=== PATIENT | female | born 1980 ===

== ENCOUNTER 2017-06-29 16:22 | Emergency (ER) | payer SELFPAY ==
[2017-06-29 16:45] VITALS: BP 106/64; PULSE 72; RESP 16; TEMP 98.4; O2SAT 100
[2017-06-29] MEDS ORDERED: Piperacillin/Tazobact 3.375 GM in Sodium Chloride 0.9% 100 ML IVPB STA (17:34)
[2017-06-29] MEDS ORDERED: Tdap Vaccine 0.5 ml Vial (10-64 yrs) IM ONE ×2 (17:36→18:10)
[2017-06-29] MEDS ORDERED: Piperacillin/Tazobact 3.375 gm Inj IVPB ONE (18:04)
--- NOTE | 2017-06-29 18:36 | ED PDOC ---
HPI: Skin/Bite Injury Time Seen by Provider: 06/29/17 17:19 Chief Complaint (Nursing): Abnormal Skin Integrity Chief Complaint (Provider): Rash History Per: Patient History/Exam Limitations: no limitations Onset/Duration Of Symptoms: Days (x1) Current Symptoms Are (Timing): Still Present Location Of Injury: Left: Forearm Quality Of Symptoms: Itching, Swollen, Other (redness) Additional Complaint(s): Juliane Joshua is a 36 year old female, with no significant past medical history, who presents to the emergency department complaining of an itchy rash to the left forearm onset since yesterday. Patient reports she developed the rash yesterday, but today she noticed the redness became worst along with swelling. She denies any fever, chills, trauma, discharge, numbness or tingling. No further medical complaints. PMD: Emmanuel Mayfield Past Medical History Reviewed: Historical Data, Nursing Documentation, Vital Signs Vital Signs: Last Vital Signs Temp 98.4 F 06/29/17 16:43 Pulse 72 06/29/17 16:43 Resp 16 06/29/17 16:43 BP 106/64 06/29/17 16:43 Pulse Ox 100 06/29/17 18:44 - Medical History PMH: No Chronic Diseases - Surgical History Surgical History: No Surg Hx - Family History Family History: States: Unknown Family Hx - Home Medications Home Medications: Ambulatory Orders Medication Instructions Recorded Famotidine [Pepcid] 20 mg PO DAILY PRN #6 tab 05/15/15 Cephalexin [cephalexin] 500 mg PO Q6 #28 cap 06/29/17 - Allergies Allergies/Adverse Reactions: Allergies Allergy/AdvReac Type Severity Reaction Status Date / Time No Known Allergies Allergy Verified 06/29/17 16:43 Review of Systems ROS Statement: Except As Marked, All Systems Reviewed And Found Negative Constitutional: Negative for: Fever, Chills, Other (trauma) Skin: Positive for: Rash (left forearm with redness and swelling) Neurological: Negative for: Numbness (or tingling) Physical Exam - Reviewed Nursing Documentation Reviewed: Yes Vital Signs Reviewed: Yes - Physical Exam Appears: Positive for: Well, Non-toxic, No Acute Distress Head Exam: Positive for: ATRAUMATIC, NORMAL INSPECTION, NORMOCEPHALIC Skin: Positive for: Normal Color, Warm, Dry, Rash (left medial ventral forearm proximal excoriations with moderate surrounding erythema, no streaking, fluctuance or induration) Eye Exam: Positive for: Normal appearance Neck: Positive for: Painless ROM Respiratory: Negative for: Respiratory Distress Pulses-Radial (L): 2+ Pulses-Radial (R): 2+ Extremity: Positive for: Normal ROM (upper and lower extremities), Capillary Refill (normal <2sec). Negative for: Deformity, Swelling Neurologic/Psych: Positive for: Alert, Oriented. Negative for: Motor/Sensory Deficits - Laboratory Results Result Diagrams: 06/29/17 18:58 06/29/17 18:58 - ECG O2 Sat by Pulse Oximetry: 100 (RA) Pulse Ox Interpretation: Normal Medical Decision Making Medical Decision Making: Initial Impression: Rash Initial Plan: --VBG Shock Panel --CMP --CBC w/ differential --Adacel 0.5 ml IM --Vancomycin Inj 1 gm Sodium Chloride 0.9% 250 ml IVPB --Zosyn 3.375 gm Sodium Chloride 0.9% 100 ml IVPB --Blood culture --Reevaluation 2000 Case d/w Dr. Peña, resident, and arrangements made for wound check in 48 hours. Pt. informed of plan but is to return to ED immediately if symptoms worsen or if fever develops. ~ Scribe Attestation: Documented by Jatinder Alexander, acting as a scribe for Diego Casey PA-C. Provider Scribe Attestation: All medical record entries made by the Scribe were at my direction and personally dictated by me. I have reviewed the chart and agree that the record accurately reflects my personal performance of the history, physical exam, medical decision making, and the department course for this patient. I have also personally directed, reviewed, and agree with the discharge instructions and disposition. Disposition - Clinical Impression Clinical Impression: Cellulitis - Patient ED Disposition Is Patient to be Admitted: No - Disposition Referrals: [facility] [Outside] [facility] [Outside] Disposition: Routine/Home Disposition Time: 20:00 Condition: STABLE Additional Instructions: Follow up with [facility] in 48 hours without fail. Return to ED immediately if symptoms worsen or if fever develops. Prescriptions: Cephalexin [cephalexin] 500 mg PO Q6 #28 cap Instructions: Cellulitis (Skin Infection), Adult (DC) Forms: [employer] (Urdu) Print Language: SETSWANA
[2017-06-29 19:05] LABS: VENOUS BLOOD GAS BASE EXCESS 0.5 mmol/L (0.0-2.0); VENOUS BLOOD GAS PCO2 50 mmHg (40-60); VENOUS BLOOD GAS PO2 19 mm/Hg (30-55); VENOUS BLOOD PH 7.34 (7.32-7.43)
[2017-06-29 19:07] LABS: BASO % 0.3 % (0.0-2.0); EOS # 0.1 K/uL (0.0-0.7); EOS % 1.3 % (0.0-4.0); HEMOGLOBIN 12.6 g/dL (12.0-16.0); LYMPH # 2.1 K/uL (1.0-4.3); LYMPH % 22.5 % (20.0-40.0); MEAN CELL VOLUME 87.4 fl (81.0-99.0); MEAN CORPUSCULAR HEMOGLOBIN 29.4 pg (27.0-31.0); MEAN CORPUSCULAR HGB CONC 33.7 g/dL (33.0-37.0); MEAN PLATELET VOLUME 8.3 fl (7.2-11.7); MONO # 0.4 K/uL (0.0-0.8); MONO % 4.5 % (0.0-10.0); NEUT # 6.7 K/uL (1.8-7.0); NEUT % 71.4 % (50.0-75.0); NRBC % 0.1 % (0.0-0.0); RBC 4.27 Mil/uL (3.80-5.20); RED CELL DISTRIBUTION WIDTH 13.2 % (11.5-14.5); WHITE BLOOD COUNT 9.3 K/uL (4.8-10.8)
[2017-06-29 19:20] LABS: ALBUMIN 3.9 g/dL (3.5-5.0); ALT/SGPT 39 U/L (9-52); AST/SGOT 25 U/L (14-36); BLOOD UREA NITROGEN 12 mg/dl (7-17); CALCIUM 8.8 mg/dL (8.4-10.2); GFR AFRICAN-AMERICAN > 60; GFR NON-AFRICAN AMERICAN > 60
== END 2017-06-29 21:36 | disposition home or self-care (01) ==
LOC: H.ER 16:22
DX: L03.90 Cellulitis, unspecified (principal)
CPT/HCPCS: 80053; 82803; 85025; 87040; 90471; 90715; 99282; J2543